=== PATIENT | female | born 1950 | race African-American/Black ===

== ENCOUNTER 2016-02-22 08:44 | Outpatient (CLI) ==
[2014-09-20 09:40] VITALS: BMI 58.6
--- NOTE | 2016-02-22 09:54 | US ---
EXAM: PELVIC ULTRASOUND COMPLETE HISTORY: Post menopausal bleeding FINDINGS: Ultrasound pelvis transvaginal. Transvaginal approach imaging was performed for improved resolution and anatomic definition. The uterus measured 10.8 x 5.9 x 7.7 centimeters. There are two myometrial masses identified. One apparently at the anterior fundal level measuring 1.8 x 1.7 x 1.6 cm. The other measured 1.3 x 2.5 x 2.0 cm and also appears to be anterior. Myometrium was otherwise unremarkable. Gross endometrial thickening at 2.3 cm. Ovaries were unable to be seen. Exam was described as technically difficult secondary to body habit us and immobility. No ascites identified. IMPRESSION: 1. Gross endometrial thickening at 2.3 cm which could represent hyperplasia. Neoplasia is not excl uded. 2. Small fibroids. 3. Ovaries were not seen. 4. UTILIZATION MANAGEMENT UM NURSE consultation for further management planning is recommended.
== END 2016-02-22 08:45 | disposition home or self-care (01) ==
LOC: RAD 08:44
PROVIDERS: ATTEND Physician Assistant
DX: N95.0 Postmenopausal bleeding (principal)

== ENCOUNTER 2017-03-16 12:01 | Outpatient (CLI) ==
[2014-09-20 09:40] VITALS: BMI 58.6
== END 2017-03-16 12:02 | disposition short-term general hospital (02) ==
LOC: AMBL 12:01
PROVIDERS: ATTEND Internal Medicine
DX: M79.672 Pain in left foot (principal); L03.116 Cellulitis of left lower limb; L03.115 Cellulitis of right lower limb